=== PATIENT | female | born 2000 | race Caucasian/White ===

== ENCOUNTER 2020-05-07 02:26 | Emergency (ER) | payer OTHER ==
[~2020-05-07] VITALS: Ht 152.4 cm; Wt 54.4 kg
[2020-05-07] MEDS ORDERED: PREDNISONE 20 M20 MG PO (03:55)
[2020-05-07] MEDS ORDERED: VENTOLIN HFA 1818 GM INH (03:55)
[2020-05-07 04:11] VITALS: BP 122/70
== END 2020-05-07 04:17 | disposition home or self-care (01) ==
LOC: ER 02:26
DX: B34.9 Viral infection, unspecified (principal); J45.901 Unspecified asthma with (acute) exacerbation; J02.9 Acute pharyngitis, unspecified; R59.0 Localized enlarged lymph nodes; Z20.828 Contact with and (suspected) exposure to other viral communicable diseases; Z88.1 Allergy status to other antibiotic agents; Z88.0 Allergy status to penicillin